=== PATIENT | female | born 1960 | race African-American/Black ===

== ENCOUNTER 2022-10-06 06:13 | Day surgery (SDC) | payer BC ==
[2022-10-02 11:59] VITALS: BMI 28.7
[2022-10-06] MEDS ORDERED: LIDOCAINE HCL 1%, 10 MG/ML (20ML VIAL) ONE (07:08)
[2022-10-06] MEDS ORDERED: MIDAZOLAM HCL 2 MG/2 ML SINGLE DOSE VIAL ONE (07:10)
[2022-10-06] MEDS ORDERED: PROPOFOL 40 ML ONE (07:38)
[2022-10-06] MEDS ORDERED: CLINDAMYCIN 600MG PREMIX IVPB 600 MG/50 ML BAG IVPB ONE (07:45)
[2022-10-06] MEDS ORDERED: ONDANSETRON 4 MG/2 ML VIAL ONE ×2 (07:52)
[2022-10-06] MEDS ORDERED: ACETAMINOPHEN 325 MG TABLET (FP) PO PRN (08:09)
[2022-10-06] MEDS ORDERED: ONDANSETRON 4 MG/2 ML VIAL IVPUSH PRN (08:09)
[2022-10-06] MEDS ORDERED: oxyCODONE HCL 5 MG TABLET PO PRN (08:09)
[2022-10-06] MEDS ORDERED: LACTATED RINGERS SOLUTION 1,000 ML IV SCH (08:15)
[2022-10-06 10:16] VITALS: BP 131/74; PULSE 80; RESP 19; TEMP 97.4
== END 2022-10-06 10:02 | disposition home or self-care (01) ==
LOC: FASU 06:13
PROVIDERS: ATTEND Orthopaedic Surgery
PROC: XW0 New Technology, Anatomical Regions, Introduction (ICD-10-PCS; 2022-10-06)
PROC: 0LN Tendons, Release (ICD-10-PCS; principal; 2022-10-06 07:54)
DX: M77.11 Lateral epicondylitis, right elbow (principal)
CPT/HCPCS: 0232T; 24357